=== PATIENT | female | born 2000 | race Caucasian/White ===

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

== ENCOUNTER 2018-01-26 13:12 | Outpatient (CLI) | payer MEDICAID ==
[2018-01-26 14:03] LABS: APPEARANCE,URINE CLOUDY; BILIRUBIN,URINE NEGATIVE (NEGATIVE); COLOR,URINE YELLOW; GLUCOSE, URINE NEGATIVE (NEGATIVE); KETONES,URINE NEGATIVE (NEGATIVE); LEUKOCYTE ESTERASE,URINE MODERATE (NEGATIVE); NITRITE,URINE NEGATIVE (NEGATIVE); PROTEIN,URINE NEGATIVE (NEGATIVE); URINE SPECIFIC GRAVITY 1.017
[2018-01-26 14:38] LABS: URINE AMPHETAMINES SCREEN NEGATIVE; URINE BARBITURATES SCREEN NEGATIVE; URINE BENZODIAZEPINES SCREEN NEGATIVE; URINE COCAINE SCREEN NEGATIVE; URINE MARIJUANA (THC) SCREEN NEGATIVE; URINE METHADONE SCREEN NEGATIVE; URINE PHENCYCLIDINE SCREEN NEGATIVE
--- NOTE | 2018-01-26 16:09 | Non Stress Test Report ---
Non Stress Test Datetime Report Generated by CPN: 01/26/2018 16:08 DEMOGRAPHIC EGA NST: 33.5 INDICATION Indication for Study: Ordered by Provider VITAL SIGNS NBPSYS NST: 128 NBPDIA NST: 64 MONITORING Monitor Explained: Monitor Explained; Test Explained; Patient Verbalized Understanding Time on Monitor: 01/26/2018 13:34 Time off Monitor: 01/26/2018 14:37 NST Duration: 63 NST INTERVENTIONS NST Interventions: PO Hydration; Reposition Patient Physician Notified NST: K. Fleming, CNM BABY A: [id number] BABY A Movement : Present Contraction Frequency : 0 FHR Baseline : 155 Accelerations : 15X15 Decelerations : None Variability : Moderate 6-25bpm NST Review: Meets Criteria for Reactive NST NST Review and Verified By : Diego Saldaña RN NST Results: Reactive NST REPORT Report Trigger: Send Report
== END 2018-01-26 14:40 | disposition home or self-care (01) ==
LOC: LC 13:12
PROVIDERS: ATTEND Obstetrics & Gynecology
PROC: 4A1HXCZ Monitoring of Products of Conception, Cardiac Rate, External Approach (ICD-10-PCS; principal; 2018-01-26)
DX: Z34.93 Encounter for supervision of normal pregnancy, unspecified, third trimester (principal)
CPT/HCPCS: 80307; 81001

== ENCOUNTER 2018-02-25 20:56 | Outpatient (CLI) | payer MEDICAID ==
[2018-02-25 21:30] LABS: APPEARANCE,URINE CLOUDY; BILIRUBIN,URINE NEGATIVE (NEGATIVE); COLOR,URINE YELLOW; GLUCOSE, URINE NEGATIVE (NEGATIVE); KETONES,URINE NEGATIVE (NEGATIVE); LEUKOCYTE ESTERASE,URINE LARGE (NEGATIVE); NITRITE,URINE NEGATIVE (NEGATIVE); PROTEIN,URINE NEGATIVE (NEGATIVE); URINE SPECIFIC GRAVITY 1.019
[2018-02-25 21:49] LABS: URINE AMPHETAMINES SCREEN NEGATIVE; URINE BARBITURATES SCREEN NEGATIVE; URINE BENZODIAZEPINES SCREEN NEGATIVE; URINE COCAINE SCREEN NEGATIVE; URINE MARIJUANA (THC) SCREEN NEGATIVE; URINE METHADONE SCREEN NEGATIVE; URINE PHENCYCLIDINE SCREEN NEGATIVE
--- NOTE | 2018-02-25 22:02 | Non Stress Test Report ---
Non Stress Test Datetime Report Generated by CPN: 02/25/2018 22:02 DEMOGRAPHIC EGA NST: 37.5 INDICATION Indication for Study: Ordered by Provider MONITORING Monitor Explained: Monitor Explained; Test Explained; Patient Verbalized Understanding Time on Monitor: 02/25/2018 21:20 Time off Monitor: 02/25/2018 22:00 NST Duration: 40 NST INTERVENTIONS NST Interventions: PO Hydration BABY A: [id number] BABY A Movement : Present Contraction Frequency : Occasional FHR Baseline : 140 Accelerations : 15X15 Decelerations : None Variability : Moderate 6-25bpm NST Review: Meets Criteria for Reactive NST NST Review and Verified By : Lauren Angeles RN NST Results: Reactive NST REPORT Report Trigger: Send Report
== END 2018-02-25 22:14 | disposition home or self-care (01) ==
LOC: LC 20:56
PROVIDERS: ATTEND Obstetrics & Gynecology
PROC: 4A1HXCZ Monitoring of Products of Conception, Cardiac Rate, External Approach (ICD-10-PCS; principal; 2018-02-25)
DX: O47.1 False labor at or after 37 completed weeks of gestation (principal); Z3A.37 37 weeks gestation of pregnancy
CPT/HCPCS: 59025; 80307; 81005; 84112

== ENCOUNTER 2018-03-03 15:36 | Outpatient (CLI) | payer MEDICAID ==
--- NOTE | 2018-03-03 16:35 | Non Stress Test Report ---
Non Stress Test Datetime Report Generated by CPN: 03/03/2018 16:34 DEMOGRAPHIC EGA NST: 38.4 INDICATION Indication for Study: Ordered by Provider Indication for Study (NST) Other: repeat from the office VITAL SIGNS Temperature - NST: 98.5 Pulse - NST: 77 RESP - NST: 16 NBPSYS NST: 122 NBPDIA NST: 62 MONITORING Monitor Explained: Monitor Explained; Test Explained; Patient Verbalized Understanding Time on Monitor: 03/03/2018 15:50 Time off Monitor: 03/03/2018 16:20 NST Duration: 30 NST INTERVENTIONS NST Interventions: Reposition Patient Physician Notified NST: J MADRID CNN BABY A: [id number] BABY A Movement : Present Contraction Frequency : rare FHR Baseline : 130 Accelerations : 15X15 Decelerations : None Variability : Moderate 6-25bpm NST Review: Meets Criteria for Reactive NST NST Review and Verified By : JOSE MANUEL PRADO Results: Reactive NST REPORT Report Trigger: Send Report
== END 2018-03-03 16:20 | disposition home or self-care (01) ==
LOC: LC 15:36
PROVIDERS: ATTEND Obstetrics & Gynecology Gynecology
PROC: 4A1HXCZ Monitoring of Products of Conception, Cardiac Rate, External Approach (ICD-10-PCS; principal; 2018-03-03)
DX: Z34.83 Encounter for supervision of other normal pregnancy, third trimester (principal)
CPT/HCPCS: 59025

== ENCOUNTER 2018-03-06 05:03 | Outpatient (CLI) | payer MEDICAID ==
[2018-03-06 05:51] LABS: APPEARANCE,URINE CLOUDY; BILIRUBIN,URINE NEGATIVE (NEGATIVE); COLOR,URINE YELLOW; GLUCOSE, URINE NEGATIVE (NEGATIVE); KETONES,URINE NEGATIVE (NEGATIVE); LEUKOCYTE ESTERASE,URINE LARGE (NEGATIVE); NITRITE,URINE NEGATIVE (NEGATIVE); PROTEIN,URINE NEGATIVE (NEGATIVE); URINE SPECIFIC GRAVITY 1.014; UROBILINOGEN,URINE NEGATIVE mg/dL (<2.0)
[2018-03-06 06:05] LABS: URINE AMPHETAMINES SCREEN NEGATIVE; URINE BARBITURATES SCREEN NEGATIVE; URINE BENZODIAZEPINES SCREEN NEGATIVE; URINE COCAINE SCREEN NEGATIVE; URINE MARIJUANA (THC) SCREEN NEGATIVE; URINE METHADONE SCREEN NEGATIVE; URINE PHENCYCLIDINE SCREEN NEGATIVE
[2018-03-06] MEDS ORDERED: HYDROXYZINE PAMOATE 50 MG CAPSULE PO ONE (06:39)
[2018-03-06] MEDS ORDERED: ONDANSETRON 4 MG TAB.RAPDIS PO ONE (06:40)
[2018-03-06] MEDS ORDERED: HYDROXYZINE PAMOATE 50 MG CAPSULE ONE (06:44)
[2018-03-06] MEDS ORDERED: ONDANSETRON 4 MG TAB.RAPDIS ONE (06:45)
--- NOTE | 2018-03-06 07:04 | Non Stress Test Report ---
Non Stress Test Datetime Report Generated by CPN: 03/06/2018 07:04 DEMOGRAPHIC Test Number: 5 EGA NST: 39.0 INDICATION Indication for Study: Ordered by Provider URINE RESULTS Urine Protein, NST: Negative Urine Ketones - NST: Negative Urine Glucose - NST: Negative Urine Blood - NST: Negative MONITORING Monitor Explained: Monitor Explained; Test Explained; Patient Verbalized Understanding Time on Monitor: 03/06/2018 05:22 Time off Monitor: 03/06/2018 06:49 NST Duration: 87 NST INTERVENTIONS NST Interventions: PO Hydration; Reposition Patient; Vibroacoustic Stim Physician Notified NST: Dr. Lazaro BABY A: [id number] BABY A Movement : Present Contraction Frequency : 2-6 FHR Baseline : 135 Accelerations : 15X15 Decelerations : None Variability : Moderate 6-25bpm NST Review: Meets Criteria for Reactive NST NST Review and Verified By : Charo Treviño RN NST REPORT Report Trigger: Send Report
[2018-03-06] MEDS ORDERED: MORPHINE SULFATE 10 MG/ML INJ IM ONE (10:17)
== END 2018-03-06 07:04 | disposition home or self-care (01) ==
LOC: LC 05:03
PROVIDERS: ATTEND Obstetrics & Gynecology Gynecology
PROC: 4A1HXCZ Monitoring of Products of Conception, Cardiac Rate, External Approach (ICD-10-PCS; principal; 2018-03-06)
DX: O47.1 False labor at or after 37 completed weeks of gestation (principal); Z3A.39 39 weeks gestation of pregnancy
CPT/HCPCS: 59025; 81005; 80307; S0119; J3490

== ENCOUNTER 2018-03-06 09:57 | Inpatient (IN) | payer MEDICAID ==
[2018-03-06] MEDS ORDERED: PENICILLIN G POTASSIUM 5,000,000 UNIT in DEXTROSE 5%-WATER 100 ML IV ONE (10:02)
[2018-03-06] MEDS ORDERED: RINGERS SOLUTION,LACTATED 1,000 ML IV ONE (10:02)
[2018-03-06] MEDS ORDERED: MORPHINE SULFATE 10 MG/ML INJ ONE (10:17)
[2018-03-06] MEDS ORDERED: PENICILLIN G-K 5 MILLION UNIT VIAL ONE ×2 (10:17→14:22)
--- NOTE | 2018-03-06 10:26 | Admission Physical ---
Datetime Report Generated by CPN: 03/06/2018 10:26 CURRENT ADMISSION Chief Complaint: Uterine Contractions Indication for Induction: Not Applicable Admit Impression : Term, Intrauterine Admit Plan: Admit to Unit; Initiate Labor Protocol ALLERGIES Medication Allergies: Yes Medication Allergies: Sulfa (Sulfonamide Antibiotics) (03/06/2018) Latex: No Latex Allergies Food Allergies: NONE Environmental Allergies: NONE OBSTETRICAL HISTORY EDC: 03/13/2018 00:00 : 1 Para: 0 Term: 0 : 0 SAB: 0 IAB: 0 Ectopic: 0 Livin Cesareans: 0 VBACs: 0 Multiple Births: 0 Gestational Diabetes: Yes Rh Sensitization: No Incompetent Cervix: No IMELDA: No Infertility: No ART Treatment: No Uterine Anomaly: No IUGR: No Hx Previous C/S: No Macrosomia: No Hx Loss/Stillborn: No PIH: No Hx : No Placenta Previa/Abruption: No Depression/PP Depression: Yes PTL/PROM: No Post Hemorrhage: No Current Procedures: Ultrasound; NST Obstetrical History Comments: G1 - current, GDM SEE RECORDS Alcohol: No Marijuana : No Cocaine: No Other Illicit Drugs: No Cigarettes: Never Smoker. 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 Heart Disease: No Hosp/Surgery: No Autoimmune Disorder: No Anesthetic Complications: No Kidney Disease: No Abnormal Pap Smear: No Neuro/Epilepsy: No Psychiatric Disorders: No Other Medical Diseases: No Hepatitis/Liver Disease: No Significant Family History: No Varicosities/Phlebitis: No Trauma/Violence : No Thyroid Dysfunction: No Medical History Comments: Depression INFECTIOUS HISTORY Gonorrhea: No Genital Herpes: No Chlamydia: No Tuberculosis: No Syphilis: No Hepatitis: No HIV/AIDS Exposure: No Rash or Viral Illness: No HPV: No PHYSICAL EXAM General: Normal HEENT: Normal Neurologic: Normal Thyroid: Deferred Heart: Normal Lungs: Normal Breast: Deferred Back: Normal Abdomen: Normal Genitourinary Exam: Deferred Extremities: Normal DTRs: Deferred Pelvic Type: Not Done Vital Signs: Reviewed; Within Normal Limits VAGINAL EXAM Dilatation: 5 Effacement: 90 Station: 0 FETUS A EGA: 39.0 Monitoring: External US FHR- Baseline: 135 Variability: Moderate 6-25bpm Accelerations: 15X15 Decelerations: None FHR Category: Category I Estimated Weight (gm): 3700 Presentation: Vertex Admit Comment: at 39w by LMP c/w 10w sono. GHTN, GDM. direct admit from office for labor. GBS pos. P:penicillin for GBS prophylaxis, anticipate PLANS FOR LABOR AND DELIVERY Labor and Delivery: None Pain Management: Natural; Epidural Feeding Preference: Breast Benefit of Breast Feed Discussed: Yes Circumcision: Yes INFORMED CONSENT Assignment: Shira Valentin MD Signature: with User ID: [email or web address] : with User ID: [email or web address]
[2018-03-06 11:01] LABS: ABSOLUTE LYMPHOCYTES (AUTO) 1.5 10^3/uL (0.5-4.7); ABSOLUTE MONOCYTES (AUTO) 0.4 10^3/uL (0.1-1.4); ABSOLUTE NEUT (AUTO) 10.5 10^3/uL (1.7-8.2); BASOPHILS % (AUTO) 0.2 % (0-2); HEMATOCRIT 30.3 % (36.0-47.0); HEMOGLOBIN 9.8 g/dL (12.0-15.5); LYMPHOCYTES % (AUTO) 12.1 % (13-45); MEAN CORPUSCULAR HGB CONC 32.5 g/dL (32.0-36.0); MEAN CORPUSCULAR VOLUME 74 fl (80-97); MONOCYTES % (AUTO) 3.1 % (3-13); PLATELET COUNT 338 10^3/uL (150-450); RED CELL DISTRIBUTION WIDTH 16.9 % (11.5-14.0); SEGMENTED NEUTROPHILS % (AUTO) 84.6 % (42-78); TOTAL CELLS COUNTED % (AUTO) 100 %; WHITE BLOOD COUNT 12.4 10^3/uL (4.0-10.5)
[2018-03-06] MEDS ORDERED: OXYTOCIN/NORMAL SALINE 20 UNIT/1,000 ML RTUINJ ONE (12:04)
[2018-03-06] MEDS ORDERED: LIDOCAINE 1% INJ-PF (10 MG/ML) 30 ML SDV ONE (12:04)
[2018-03-06] MEDS ORDERED: MISOPROSTOL 0.2 MG TABLET ONE (12:04)
[2018-03-06] MEDS ORDERED: ONDANSETRON HCL INJ/PF 4 MG/2 ML SDV ONE (12:04)
[2018-03-06] MEDS: PENICILLIN G POTASSIUM 2,500,000 UNIT in DEXTROSE 5%-WATER 50 ML IV SCH ×2 (14:29→20:13)
[2018-03-06] MEDS ORDERED: FENTANYL CITRATE INJ/PF 100 MCG/2 ML AMPUL ONE (15:40)
[2018-03-06] MEDS ORDERED: ACETAMINOPHEN 650 MG SUPP.RECT PR PRN (15:58)
[2018-03-06] MEDS ORDERED: PROMETHAZINE HCL INJ 25 MG/1 ML VIAL IV PRN (15:58)
[2018-03-06] MEDS ORDERED: OXYTOCIN/NORMAL SALINE 20 UNIT/1,000 ML RTUINJ IV PRN (15:58)
[2018-03-06] MEDS ORDERED: GLYCERIN/WITCH HAZEL LEAF 1 EACH MED..PAD TP PRN (15:58)
[2018-03-06] MEDS ORDERED: ACETAMINOPHEN WITH CODEINE #3 TABLET PO PRN ×2 (15:58)
[2018-03-06] MEDS ORDERED: MAGNESIUM HYDROXIDE SUSP 30 ML UDCUP PO PRN (15:58)
[2018-03-06] MEDS ORDERED: BENZOCAINE/MENTHOL AEROSOL SPRAY 56 ML TOP PRN (15:58)
[2018-03-06] MEDS ORDERED: PSEUDOEPHEDRINE HCL 30 MG TABLET PO PRN (15:58)
[2018-03-06] MEDS ORDERED: MEASLES,MUMPS&RUBELLA VACC/PF 0.5 ML VIAL SUBCUT PRN (15:58)
[2018-03-06] MEDS ORDERED: DIBUCAINE 1% OINTMENT 28 GM TP PRN (15:58)
[2018-03-06] MEDS ORDERED: DIPH/PERTUSS(ACELL)/TETANUS VAC/PF 0.5 ML SYR (>=10YO) IM PRN (15:58)
[2018-03-06] MEDS ORDERED: DIPHENHYDRAMINE HCL 25 MG CAPSULE PO PRN (15:58)
[2018-03-06] MEDS ORDERED: ZOLPIDEM TARTRATE 5 MG TABLET PO PRN (15:58)
[2018-03-06] MEDS ORDERED: PROMETHAZINE HCL 25 MG TABLET PO PRN (15:58)
[2018-03-06] MEDS ORDERED: PROMETHAZINE HCL 25 MG SUPP.RECT PR PRN (15:58)
[2018-03-06] MEDS ORDERED: NA PHOS,M-B/NA PHOS,DI-BA (ADULT) 133 ML ENEMA PR PRN (15:58)
[2018-03-06] MEDS ORDERED: IBUPROFEN 800 MG TABLET ONE (17:17)
[2018-03-06] MEDS: FERROUS SULFATE 325 MG TABLET PO SCH (19:16)
[2018-03-06] MEDS: DOCUSATE SODIUM 100 MG CAPSULE PO SCH (19:16)
[2018-03-06] MEDS: FAMOTIDINE 20 MG TABLET PO SCH (21:20)
[2018-03-06] MEDS: IBUPROFEN 800 MG TABLET PO SCH (21:21)
[2018-03-07] MEDS: IBUPROFEN 800 MG TABLET PO SCH ×3 (06:00→22:20)
[2018-03-07 08:18] LABS: MEAN CORPUSCULAR HEMOGLOBIN 24.3 pg (27.0-33.4); MEAN CORPUSCULAR VOLUME 76 fl (80-97); PLATELET COUNT 304 10^3/uL (150-450); RED CELL DISTRIBUTION WIDTH 17.1 % (11.5-14.0); WHITE BLOOD COUNT 14.8 10^3/uL (4.0-10.5)
[2018-03-07] MEDS: FERROUS SULFATE 325 MG TABLET PO SCH ×2 (10:20→17:44)
[2018-03-07] MEDS: PRENATAL VITAMIN W DHA CAPSULE PO SCH (10:20)
[2018-03-07] MEDS: SENNOSIDES/DOCUSATE 8.6-50 MG 1 EACH TABLET PO SCH (10:20)
[2018-03-07] MEDS: FAMOTIDINE 20 MG TABLET PO SCH ×2 (10:20→22:21)
[2018-03-07] MEDS: DOCUSATE SODIUM 100 MG CAPSULE PO SCH ×2 (10:20→17:49)
--- NOTE | 2018-03-07 10:26 | PDOC PROGRESS REPORT ---
Subjective-OB Progress Note for:: 03/07/18 Subjective: PP Day #1, . c/o vaginal itching, diagnosed with yeast infection but did not finish her 7 day Monistat course prior to delivering. A+ Rubella Immune Physical Exam (OB) Vital Signs: Temp Pulse Resp BP Pulse Ox 97.7 F 55 L 16 116/66 98 03/07/18 07:58 03/07/18 07:58 03/07/18 07:58 03/07/18 07:58 03/07/18 07:58 Intake & Output 03/06/18 03/07/18 03/08/18 06:59 06:59 06:59 Intake Total 1150 Balance 1150 Weight 103 kg - General General Appearance: Appears well, Alert In distress: None - Lochia Lochia Amount: Small 10-25 ml Lochia Color: Rubra/Red - Abdomen Description: Tender, Soft Hernia Present: No Fundal Description: Firm, Midline Fundal Height: u/u - u/2 - Respiratory Respiratory Status: No respiratory distress - Abdominal Inspection: Normal Distension: No distension - Genitourinary Genitourinary Note: voiding - Extremities Upper extremity: Normal inspection Lower extremities: Normal inspection - Neurological Cognition: Normal Orientation: AAOx4 - Psychological Associated symptoms: Normal affect, Normal mood Objective-Diagnostic Laboratory: 03/07/18 07:26 03/06/18 03/06/18 03/07/18 10:30 10:30 07:26 WBC 12.4 H 14.8 H RBC 4.10 3.70 L Hgb 9.8 L 9.0 L Hct 30.3 L 28.0 L MCV 74 L 76 L MCH 24.0 L 24.3 L MCHC 32.5 32.0 RDW 16.9 H 17.1 H Plt Count 338 304 Seg Neutrophils % 84.6 H Lymphocytes % 12.1 L Monocytes % 3.1 Eosinophils % 0.0 Basophils % 0.2 Absolute Neutrophils 10.5 H Absolute Lymphocytes 1.5 Absolute Monocytes 0.4 Absolute Eosinophils 0.0 Absolute Basophils 0.0 Blood Type A POSITIVE Antibody Screen NEGATIVE Assessment and Plan(PN) - Assessment and Plan (1) (normal spontaneous vaginal delivery) Is this a current diagnosis for this admission?: Yes (2) Anemia, Is this a current diagnosis for this admission?: Yes - Time Spent with Patient Time with patient: Less than 15 minutes Medications reviewed and adjusted accordingly: Yes - Disposition Anticipated Discharge: Home Within: within 24 hours
[2018-03-08] MEDS: IBUPROFEN 800 MG TABLET PO SCH ×2 (05:54→13:20)
[2018-03-08] MEDS ORDERED: (PENDING PHARMACY ID) (Pnv119/Iron Fum/Folic/Docusate [Prenatal 19 Tablet] 1 EACH) PO SCH (10:00)
[2018-03-08] MEDS: DOCUSATE SODIUM 100 MG CAPSULE PO SCH (10:05)
[2018-03-08] MEDS: PRENATAL VITAMIN W DHA CAPSULE PO SCH (10:05)
[2018-03-08] MEDS: SENNOSIDES/DOCUSATE 8.6-50 MG 1 EACH TABLET PO SCH (10:05)
[2018-03-08] MEDS: FAMOTIDINE 20 MG TABLET PO SCH (10:05)
[2018-03-08] MEDS: FERROUS SULFATE 325 MG TABLET PO SCH (10:08)
--- NOTE | 2018-03-08 14:24 | PDOC DISCHARGE SUMMARY ---
Final Diagnosis Discharge Date: 03/08/18 - Final Diagnosis (1) Anemia affecting in third trimester Is this a current diagnosis for this admission?: Yes (2) Gestational diabetes mellitus (GDM) affecting Is this a current diagnosis for this admission?: Yes (3) (normal spontaneous vaginal delivery) Is this a current diagnosis for this admission?: Yes (4) Anemia, Is this a current diagnosis for this admission?: Yes (5) Perineal laceration complicating delivery Is this a current diagnosis for this admission?: Yes Discharge Data - Discharge Medication Prescriptions: Fluconazole [Diflucan] 200 mg PO Q3DAYS #2 tablet Docusate Sodium [Colace 100 mg Capsule] 100 mg PO BID #60 capsule Ferrous Sulfate [Feosol 325 mg Tablet] 325 mg PO BID #30 tablet Ibuprofen [Motrin 800 mg Tablet] 800 mg PO Q8 PRN #60 tablet PRN Reason: Home Medications: Rev311/Iron Fum/Folic/Docusate [ 19 Tablet] 1 each PO DAILY 03/03/18 Ferrous Sulfate [Feosol 325 mg Tablet] 325 mg PO BID #30 tablet 03/07/18 Fluconazole [Diflucan] 200 mg PO Q3DAYS #2 tablet 03/07/18 Ibuprofen [Motrin 800 mg Tablet] 800 mg PO Q8 PRN #60 tablet 03/07/18 Docusate Sodium [Colace 100 mg Capsule] 100 mg PO BID #60 capsule 03/08/18 Reason(s) for Admission: Onset of Labor Procedures: Ultrasound Intrapartum Procedure(s): Spontaneous Vaginal Delivery Complication(s): Laceration-Perineal Laceration-Degree: 2nd - Diagnosis Test Laboratory: Temp Pulse Resp BP Pulse Ox 98.7 F 82 18 135/81 H 99 03/08/18 08:14 03/08/18 08:14 03/08/18 08:14 03/08/18 08:14 03/08/18 08:14 03/06/18 03/07/18 10:30 07:26 RBC 4.10 3.70 L Hgb 9.8 L 9.0 L Hct 30.3 L 28.0 L - Discharge information/Instructions Discharge Activity: Activity As Tolerated, Balance Activity w/Rest, No Lifting Over 10 Pounds, Pelvic Rest, Walk Frequently Discharge Diet: As Tolerated, Regular Disposition: HOME, SELF-CARE Follow up with: [facility] in: 1, Weeks - bp check
[2018-03-08 15:02] VITALS: BP 135/81
--- NOTE | 2018-03-14 08:12 | Delivery Summary ---
Del Sum A-C Datetime Report Generated by CPN: 03/14/2018 08:11 DELIVERY PERSONNEL DELIVERY PERSONNEL: [id number] Delivery Doctor:: Lisbeth Khan CNM Labor and Delivery Nurse:: Margie Sullivan RNstudio model Nurse:: JAMAL Bernal/POLYMERIZATION KETTLE OPERATOR: Oumou Zee, SONG AND DANCE PERFORMER MATERNAL INFORMATION Delivery Anesthesia: None Medications After Delivery: Pitocin Drip 20 Units/1000ml NSS Maternal Complications: None Provider Comments: MEGAN VIABLE MALE INFANT WITH SPONTANEOUS CRY. SPONTANEOUS PLACENTA INTACT WITH 3VC. 2NG DEGREE PERINEAL LACERATION REPAIRED UNDER LOCAL ANESTHESIA. MOTHER AND INFANT STABLE IN L_D #6 LABOR SUMMARY EDC: 03/13/2018 00:00 No. Babies in Womb: 1 Attempted: No Labor Anesthesia: None LABOR INFORMATION Reason for Induction: Not Applicable Onset of Labor: 03/06/2018 09:30 Complete Dilatation: 03/06/2018 15:24 Other Ripening Agents: n/a Oxytocin: N/A Group B Beta Strep: positive Antibiotics # of Doses: 2 Antibiotics Time of Last Dose: 1429 Name of Antibiotic Given: PCN Steroids Given: None Reason Steroids Not Administered: Not Applicable Other Reason Not Administered: n/a MEMBRANES Membranes Rupture Method: Spontaneous Rupture of Membranes: 03/06/2018 15:23 Length of Rupture (hr): 0.12 Amniotic Fluid Color: Clear Amniotic Fluid Amount: Small Amniotic Fluid Odor: Normal STAGES OF LABOR Stage 1 hr: 5 Stage 1 min: 54 Stage 2 hr: 0 Stage 2 min: 6 Stage 3 hr: 0 Stage 3 min: 6 Total Time in Labor hr: 6 Total Time in Labor min: 6 VAGINAL DELIVERY Episiotomy: None Laceration #1: Perineal Laceration Extension #1: Second Degree Laceration Repair: Yes Sponge Count Correct: Yes Sharps Count Correct: Yes CSECTION DELIVERY Primary Indication: N/A Secondary Indication: N/A CSection Incidence: N/A Labor: N/A Elective: N/A CSection Incision: N/A BABY A INFORMATION Delivery Date/Time: 03/06/2018 15:30 Method of Delivery: Vaginal Born in Route : No : N/A Forceps: N/A Vacuum Extraction: N/A Shoulder Dystocia : No PRESENTATION/POSITION BABY A Presentation: Cephalic Cephalic Presentation: Vertex Vertex Position: Right Occipital Anterior Breech Presentation: N/A PLACENTA INFORMATION BABY A Placenta Delivery Time : 03/06/2018 15:36 Placenta Method of Delivery: Spontaneous Placenta Status: Delivered SCORES BABY A Heart Rate 1 min: >100 bpm Resp Effort 1 min: Good Cry Reflex Irritability 1 min: Cough or Sneeze or Pulls Away Muscle Tone 1 min: Active Motion Color 1 min: Blue/Pale SCORE 1 MIN: 8 Heart Rate 5 min: >100 bpm Resp Effort 5 min: Good Cry Reflex Irritability 5 min: Cough or Sneeze or Pulls Away Muscle Tone 5 min: Active Motion Color 5 min: Body [employer], Extremities Blue Resuscitation Effort 5 min: N/A SCORE 5 MIN: 9 INFORMATION BABY A Gestational Age at Delivery: 39.0 Gestational Status: Full Term- 39- 40.6 Weeks Outcome : Liveborn Condition : Stable Infant Sex: Male IDENTIFICATION BABY A Verification Date/Time: 03/06/2018 15:46 ID Band Number: [id number] Mother's Name Verified: Yes Infant RN Verifying Infant: Diego Saldaña, RN and Hannah Field, RN WEIGHT/LENGTH BABY A Birthweight (gm): 3520 Infant Weight (lb): 7 Infant Weight (oz): 12 Length (in): 20.00 Length (cm): 50.80 CORD INFORMATION BABY A No. Cord Vessels: 3 Nuchal Cord : N/A Cord Blood Taken: Yes-For Storage (Mom's Blood type +) Infant Suction: Mouth ASSESSMENT BABY A Complications: None Physical Findings at Delivery: Within Normal Limits Respirations: Appears Normal Skin to Skin: Yes Skin to Skin Time (min): 90 Riveter/ALS Called : No Infant Care By: B Meng RN Transferred To: Remains with Mother BABY B INFORMATION : N/A SIGNATURES Assignment: Shria Valentin MD Signature: with User ID: [email or web address] : with User ID: [email or web address] : I was personally available for consultation and serving as supervising physician for the MLP. : I was personally available for consultation and serving as supervising physician for the MLP.
== END 2018-03-08 15:23 | disposition home or self-care (01) | DRG 806 ==
LOC: LC 09:57 → LR 10:21 → EEVIPCON 10:21 → 2S 18:31
PROVIDERS: ADMIT Obstetrics & Gynecology; ATTEND Obstetrics & Gynecology
PROC: 10E0XZZ Delivery of Products of Conception, External Approach (ICD-10-PCS; principal; 2018-03-06)
PROC: 0KQM0ZZ Repair Perineum Muscle, Open Approach (ICD-10-PCS; 2018-03-06)
PROC: 4A1HXCZ Monitoring of Products of Conception, Cardiac Rate, External Approach (ICD-10-PCS; 2018-03-06)
DX: O99.824 Streptococcus B carrier state complicating childbirth (principal); D62 Acute posthemorrhagic anemia; O98.82 Other maternal infectious and parasitic diseases complicating childbirth; B37.49 Other urogenital candidiasis; O24.429 Gestational diabetes mellitus in childbirth, unspecified control; O99.02 Anemia complicating childbirth; O70.1 Second degree perineal laceration during delivery; Z88.2 Allergy status to sulfonamides; Z3A.39 39 weeks gestation of pregnancy; Z37.0 Single live birth
CPT/HCPCS: 36415; 85025; 85027; 86592; 86850; 86900; 86901; 90471; 90686; 90715; G0008; J2270; J2405; J2540; J2590; J3010; J3490

== ENCOUNTER 2019-05-31 22:38 | Outpatient (CLI) | payer MEDICAID ==
[2019-05-31 23:18] LABS: APPEARANCE,URINE CLOUDY; BILIRUBIN,URINE NEGATIVE (NEGATIVE); COLOR,URINE YELLOW; GLUCOSE, URINE NEGATIVE (NEGATIVE); KETONES,URINE NEGATIVE (NEGATIVE); LEUKOCYTE ESTERASE,URINE SMALL (NEGATIVE); NITRITE,URINE NEGATIVE (NEGATIVE); PROTEIN,URINE NEGATIVE (NEGATIVE); URINE SPECIFIC GRAVITY 1.023
[2019-05-31] MEDS ORDERED: ACETAMINOPHEN 325 MG TABLET ONE (23:33)
[2019-05-31 23:35] LABS: URINE AMPHETAMINES SCREEN NEGATIVE; URINE BARBITURATES SCREEN NEGATIVE; URINE BENZODIAZEPINES SCREEN NEGATIVE; URINE COCAINE SCREEN NEGATIVE; URINE MARIJUANA (THC) SCREEN NEGATIVE; URINE METHADONE SCREEN NEGATIVE; URINE PHENCYCLIDINE SCREEN NEGATIVE
[2019-05-31] MEDS ORDERED: ACETAMINOPHEN 325 MG TABLET PO ONE (23:59)
--- NOTE | 2019-06-01 00:34 | RADIOLOGY REPORT (SQ) ---
CLINICAL HISTORY: Cervical Length COMPARISON: None. TECHNIQUE: US LIMITED on 05/31/2019 11:16 PM STUDIO MANAGER FINDINGS: Intrauterine gestation is present. Placenta is anterior and unremarkable. Cervix is closed measuring 3.1 cm. VIVIAN is normal at 19.4 cm. Fetus is in breech presentation. heart rate is 139 bpm. Biparietal diameter measures 7 cm corresponding to 20 weeks zero days. Head circumference measures 25.7 cm corresponding to 28 weeks zero days. Abdominal circumference measures 23.6 cm corresponding to 27 weeks six days. Femur length measures 5.2 cm corresponding to 27 weeks five days. Estimated weight is 1137 g +/- 1 168 g, 89th percentile. IMPRESSION: Closed, 3.1 cm cervix.
== END 2019-06-01 01:02 | disposition home or self-care (01) ==
LOC: LC 22:38
PROVIDERS: ATTEND Obstetrics & Gynecology
PROC: 4A1HXCZ Monitoring of Products of Conception, Cardiac Rate, External Approach (ICD-10-PCS; principal; 2019-05-31)
DX: O26.892 Other specified pregnancy related conditions, second trimester (principal); Z3A.25 25 weeks gestation of pregnancy
CPT/HCPCS: 81001; 80307; 76815; 59899; J3490

== ENCOUNTER 2019-06-05 13:07 | Emergency (ER) | payer MEDICAID ==
--- NOTE | 2019-06-05 13:45 | ER Document Report ---
ED Medical Screen (RME) - General Chief Complaint: Dizziness Stated Complaint: DIFFICULTY BREATHING/DIZZINESS Time Seen by Provider: 06/05/19 13:38 TRAVEL OUTSIDE OF THE [place] IN LAST 30 DAYS: No - HPI Notes: 06/05/19 13:43 Patient is a 18-year-old female approximately 25 weeks who presents complaining of feeling short of breath for the last several weeks, but slowly worsening since that time. Patient states that she was seen this past weekend for having low back pain and was told that the baby's head was pushing in her right upper side. Patient states that she has had a slight cough and congestion throughout her . No fever or chest pain. No other lower pelvic pain that is new or vaginal bleeding/odor/discharge. No new back pain. L&D wanted her to come here for eval. I have treated and performed a rapid initial assessment of this patient. A comprehensive ED assessment and evaluation of the patient, analysis of test results and completion of medical decision making process will be conducted by additional ED providers. PHYSICAL EXAMINATION: GENERAL: Well-appearing, well-nourished and in no acute distress. A&Ox4. Answers questions appropriately. Lungs: CTAB Heart: RRR - Related Data Allergies/Adverse Reactions: Sulfa (Sulfonamide Antibiotics) Allergy (Verified 06/05/19 13:39) Past Medical History Psychiatric Medical History: Reports: Hx Attention Deficit Hyperactivity Disorder, Hx Depression - Immunizations Immunizations up to date: Yes Hx Diphtheria, Pertussis, Tetanus Vaccination: Yes Physical Exam - Vital signs Vitals: Temp Pulse Resp BP Pulse Ox 98.3 F 101 H 28 H 137/71 H 100 06/05/19 13:21 06/05/19 13:21 06/05/19 13:21 06/05/19 13:21 06/05/19 13:21 Course - Vital Signs Vital signs: Temp Pulse Resp BP Pulse Ox 98.3 F 101 H 28 H 137/71 H 100 06/05/19 13:21 06/05/19 13:21 06/05/19 13:21 06/05/19 13:21 06/05/19 13:21
--- NOTE | 2019-06-05 14:40 | RADIOLOGY REPORT (SQ) ---
EXAM DESCRIPTION: CHEST 2 VIEWS COMPLETED DATE/TIME: 06/05/2019 2:04 pm REASON FOR STUDY: SOB, COMPARISON: None. EXAM PARAMETERS: NUMBER OF VIEWS: two views TECHNIQUE: Digital Frontal and Lateral radiographic views of the chest acquired. RADIATION DOSE: NA LIMITATIONS: none FINDINGS: LUNGS AND PLEURA: No opacities, masses or pneumothorax. No pleural effusion. MEDIASTINUM AND HILAR STRUCTURES: No masses or contour abnormalities. HEART AND VASCULAR STRUCTURES: Heart normal size. No evidence for failure. BONES: No acute findings. HARDWARE: None in the chest. OTHER: No other significant finding. IMPRESSION: NO ACUTE RADIOGRAPHIC FINDING IN THE CHEST. TECHNICAL DOCUMENTATION: JOB ID: [id number] [employer]- All Rights Reserved Reading location - IP/workstation name: [email or web address]
[2019-06-05 14:57] LABS: ABSOLUTE LYMPHOCYTES (AUTO) 1.7 10^3/uL (0.5-4.7); ABSOLUTE MONOCYTES (AUTO) 0.7 10^3/uL (0.1-1.4); ABSOLUTE NEUT (AUTO) 6.4 10^3/uL (1.7-8.2); BASOPHILS % (AUTO) 0.2 % (0-2); EOSINOPHILS % (AUTO) 0.1 % (0-6); HEMATOCRIT 26.4 % (36.0-47.0); HEMOGLOBIN 8.6 g/dL (12.0-15.5); LYMPHOCYTES % (AUTO) 19.2 % (13-45); MEAN CORPUSCULAR HEMOGLOBIN 26.3 pg (27.0-33.4); MEAN CORPUSCULAR HGB CONC 32.7 g/dL (32.0-36.0); MEAN CORPUSCULAR VOLUME 81 fl (80-97); PLATELET COUNT 284 10^3/uL (150-450); RED BLOOD COUNT 3.28 10^6/uL (3.72-5.28); RED CELL DISTRIBUTION WIDTH 14.2 % (11.5-14.0); SEGMENTED NEUTROPHILS % (AUTO) 72.5 % (42-78); TOTAL CELLS COUNTED % (AUTO) 100 %; WHITE BLOOD COUNT 8.8 10^3/uL (4.0-10.5)
[2019-06-05 15:02] LABS: AMORPHOUS SEDIMENT,URINE TRACE /HPF; APPEARANCE,URINE CLOUDY; BILIRUBIN,URINE NEGATIVE (NEGATIVE); COLOR,URINE YELLOW; GLUCOSE, URINE NEGATIVE (NEGATIVE); KETONES,URINE NEGATIVE (NEGATIVE); PROTEIN,URINE NEGATIVE (NEGATIVE); URINE SPECIFIC GRAVITY 1.017
[2019-06-05 15:24] LABS: ALBUMIN 3.4 g/dL (3.5-5.0); ALKALINE PHOSPHATASE 77 U/L (38-126); ANION GAP 9 (5-19); ASPARTATE AMINO TRANSFERASE 17 U/L (14-36); BILIRUBIN,DIRECT 0.2 mg/dL (0.0-0.4); BILIRUBIN,TOTAL 0.5 mg/dL (0.2-1.3); BLOOD UREA NITROGEN 5 mg/dL (7-20); CALCIUM 8.8 mg/dL (8.4-10.2); CARBON DIOXIDE 21 mmol/L (22-30); CHLORIDE 106 mmol/L (98-107); GLUCOSE 81 mg/dL (75-110); POTASSIUM 4.1 mmol/L (3.6-5.0); TOTAL PROTEIN 6.7 g/dL (6.3-8.2)
--- NOTE | 2019-06-05 19:10 | EKG REPORT ---
SEVERITY:- BORDERLINE ECG - SINUS RHYTHM BORDERLINE T ABNORMALITIES, DIFFUSE LEADS : Confirmed by: Deshawn Harvey MD 05-Jun-2019 19:10:20
--- NOTE | 2019-06-05 19:14 | ER Document Report ---
ED General - General Chief Complaint: Breathing Difficulty Stated Complaint: DIFFICULTY BREATHING/DIZZINESS Time Seen by Provider: 06/05/19 13:38 Notes: 18-year-old female 2 para 1, presents to the emergency department with a complaint of feeling like her baby is pressing into her lungs and causing her to feel short of breath. States that she sits all day at work and has been getting dizzy and feeling short of breath due to the baby's positioning. She denies chest pain, nausea vomiting, or fever and chills. She also denies cough or sustained shortness of breath. Patient states that now that she is lying down she feels much better. Bedside ultrasound performed in the emergency department reveals a good heartbeat and good movement noted the head is noted to be in the pelvis. OB ultrasound performed 05/31/2019 revealed a 27-week intrauterine . TRAVEL OUTSIDE OF THE [place] IN LAST 30 DAYS: No - Related Data Allergies/Adverse Reactions: Sulfa (Sulfonamide Antibiotics) Allergy (Verified 06/05/19 13:39) Past Medical History - Social History Smoking Status: Never Smoker Chew tobacco use (# tins/day): No Frequency of alcohol use: None Drug Abuse: None Family History: Reviewed & Not Pertinent Patient has suicidal ideation: No Patient has homicidal ideation: No Psychiatric Medical History: Reports: Hx Attention Deficit Hyperactivity Disorder, Hx Depression - Immunizations Immunizations up to date: Yes Hx Diphtheria, Pertussis, Tetanus Vaccination: Yes Review of Systems - Review of Systems Notes: Constitutional: Negative for fever. HENT: Negative for sore throat. Eyes: Negative for visual changes. Cardiovascular: Negative for chest pain. Respiratory: + Shortness of breath. Gastrointestinal: Negative for abdominal pain, vomiting or diarrhea. Genitourinary: Negative for dysuria. Musculoskeletal: + Back pain, pelvic pain. Skin: Negative for rash. Neurological: Negative for headaches, weakness or numbness. 10 point ROS negative except as marked above and in HPI. Physical Exam - Vital signs Vitals: Temp Pulse Resp BP Pulse Ox 98.3 F 101 H 28 H 137/71 H 100 06/05/19 13:21 06/05/19 13:21 06/05/19 13:21 06/05/19 13:21 06/05/19 13:21 - Notes Notes: PHYSICAL EXAMINATION: Physical Exam: General: Well-nourished well-developed female in no acute distress HEENT: NC/AT, pupils equal round and reactive to light, MM moist,nares clear, Neck: supple, no adenopathy, no masses. Lungs: clear, no wheezing, no rales no rhonchi CVS: Regular rate and rhythm no murmur gallop or rub Abdomen: Gravid, good heartbeat, soft active nontender, no masses, no hepatosplenomegaly Ext: No edema clubbing or cyanosis. Neuro: Alert and responsive, moving all 4 extremities on command, cranial nerves intact. Skin: Intact no open lesions, no rash PSYCH: Normal mood, normal affect. Course - Vital Signs Vital signs: Temp Pulse Resp BP Pulse Ox 98.3 F 101 H 28 H 137/71 H 100 06/05/19 13:21 06/05/19 13:21 06/05/19 13:21 06/05/19 13:21 06/05/19 13:21 - Laboratory Result Diagrams: 06/05/19 13:58 06/05/19 13:58 Laboratory results interpreted by me: 06/05/19 06/05/19 06/05/19 13:58 13:58 13:58 RBC 3.28 L Hgb 8.6 L Hct 26.4 L MCH 26.3 L RDW 14.2 H Sodium 135.8 L Carbon Dioxide 21 L BUN 5 L Creatinine 0.51 L Albumin 3.4 L Urine Urobilinogen 2.0 H Leukocyte Esterase Rfl TRACE H 06/05/19 19:12 I have reviewed laboratory data and used this information for the treatment decisions regarding the patient. Discharge - Discharge Clinical Impression: Second trimester Condition: Good Disposition: HOME, SELF-CARE Unit Admitted: Labor Check Additional Instructions: Please go to the OB floor for further evaluation of your status.
[2019-06-05 21:02] VITALS: BP 115/65
== END 2019-06-05 21:01 | disposition home or self-care (01) ==
LOC: ER 13:07
DX: O26.892 Other specified pregnancy related conditions, second trimester (principal); R06.02 Shortness of breath; R42 Dizziness and giddiness; M54.9 Dorsalgia, unspecified; R10.2 Pelvic and perineal pain; Z3A.27 27 weeks gestation of pregnancy
CPT/HCPCS: 93005; 99285; 36415; 87086; 85025; 80053; 81001; 71046; 93010; C1769

== ENCOUNTER 2019-06-05 21:24 | Outpatient (CLI) | payer MEDICAID ==
[2019-06-05 22:18] LABS: URINE AMPHETAMINES SCREEN NEGATIVE; URINE BARBITURATES SCREEN NEGATIVE; URINE BENZODIAZEPINES SCREEN NEGATIVE; URINE COCAINE SCREEN NEGATIVE; URINE MARIJUANA (THC) SCREEN NEGATIVE; URINE METHADONE SCREEN NEGATIVE; URINE PHENCYCLIDINE SCREEN NEGATIVE
== END 2019-06-05 21:40 | disposition home or self-care (01) ==
LOC: LC 21:24
PROVIDERS: ATTEND Student in an Organized Health Care Education/Training Program
PROC: 4A1HXCZ Monitoring of Products of Conception, Cardiac Rate, External Approach (ICD-10-PCS; principal; 2019-06-05)
DX: O47.02 False labor before 37 completed weeks of gestation, second trimester (principal); Z3A.25 25 weeks gestation of pregnancy
CPT/HCPCS: 80307

== ENCOUNTER 2019-07-13 12:01 | Outpatient (CLI) | payer MEDICAID ==
[2019-07-13] MEDS ORDERED: DEXTROSE 5%-LACTATED RINGERS 1,000 ML IV PRN (12:49)
[2019-07-13 12:57] LABS: APPEARANCE,URINE SLIGHTLY-CLOUDY; BILIRUBIN,URINE NEGATIVE (NEGATIVE); COLOR,URINE YELLOW; GLUCOSE, URINE NEGATIVE (NEGATIVE); KETONES,URINE NEGATIVE (NEGATIVE); LEUKOCYTE ESTERASE,URINE MODERATE (NEGATIVE); NITRITE,URINE NEGATIVE (NEGATIVE); PROTEIN,URINE 30 mg/dL (NEGATIVE); URINE SPECIFIC GRAVITY 1.024
[2019-07-13 13:21] LABS: URINE AMPHETAMINES SCREEN NEGATIVE; URINE BARBITURATES SCREEN NEGATIVE; URINE BENZODIAZEPINES SCREEN NEGATIVE; URINE COCAINE SCREEN NEGATIVE; URINE MARIJUANA (THC) SCREEN NEGATIVE; URINE METHADONE SCREEN NEGATIVE; URINE PHENCYCLIDINE SCREEN NEGATIVE
--- NOTE | 2019-07-13 13:49 | Non Stress Test Report ---
Non Stress Test Datetime Report Generated by CPN: 07/13/2019 13:49 DEMOGRAPHIC EGA NST: 34.0 URINE RESULTS Urine Glucose - NST: Positive MONITORING Monitor Explained: Monitor Explained; Test Explained; Patient Verbalized Understanding Time on Monitor: 07/13/2019 12:21 Time off Monitor: 07/13/2019 13:04 NST Duration: 43 NST INTERVENTIONS NST Interventions: None Physician Notified NST: A. Khan, CNM BABY A: [id number] BABY A Movement : Decreased Contraction Frequency : 0 FHR Baseline : 110 Decelerations : None Variability : Minimal - Undetectable to <=5bpm NST Review: Does Not Meet Criteria for Reactive NST NST Review and Verified By : B Baidy RN NST Results: Non-Reactive NST REPORT Report Trigger: Send Report
--- NOTE | 2019-07-13 13:54 | RADIOLOGY REPORT (SQ) ---
EXAM DESCRIPTION: U/S PROFILE W/O STRESS COMPLETED DATE/TIME: 07/13/2019 1:28 pm REASON FOR STUDY: BPP for anomaly and nonreactive NST COMPARISON: Limited OB ultrasound dated 06/01/2019 TECHNIQUE: Limited green-scale realtime and static images of the fetus to measure specified parameter s. LIMITATIONS: None. FINDINGS: HEART RATE: 116 beats per minute. VIVIAN: 22.3 cm. LVP: 8.0 cm BREATHING MOVEMENT: 2 points. MOVEMENT: 2 points. POSTURE AND TONE: 2 points. QUALITATIVE VIVIAN: 2 points. OTHER: Cephalic presentation. IMPRESSION: BIOPHYSICAL PROFILE: 01/11. Trimester of : Third - 28 weeks to delivery COMMENT: BREATHING MOVEMENTS: 2 POINTS: PRESENT 0 POINTS: ABSENT MOTION: 2 POINTS: PRESENT 0 POINTS: ABSENT TONE: 2 POINTS: PRESENT 0 POINTS: ABSENT AMNIOTIC FLUID VOLUME: 2 POINTS: LARGEST POCKET GREATER THAN 2 CM DEPTH. 0 POINTS: NO POCKET OF 2 CM. TECHNICAL DOCUMENTATION: JOB ID: [id number] [employer]- All Rights Reserved Reading location - IP/workstation name: [email or web address]
== END 2019-07-13 13:35 | disposition home or self-care (01) ==
LOC: EEVIPCON 12:01 → LC 12:01
PROVIDERS: ATTEND Obstetrics & Gynecology
PROC: 4A1HXCZ Monitoring of Products of Conception, Cardiac Rate, External Approach (ICD-10-PCS; principal; 2019-07-13)
DX: O36.8130 Decreased fetal movements, third trimester, not applicable or unspecified (principal); Z3A.34 34 weeks gestation of pregnancy
CPT/HCPCS: 59025; 76819; 80307; 81001

== ENCOUNTER 2019-07-26 09:40 | Outpatient (CLI) | payer MEDICAID ==
[2019-07-26 10:20] LABS: APPEARANCE,URINE CLEAR; BILIRUBIN,URINE NEGATIVE (NEGATIVE); COLOR,URINE YELLOW; GLUCOSE, URINE NEGATIVE (NEGATIVE); KETONES,URINE NEGATIVE (NEGATIVE); LEUKOCYTE ESTERASE,URINE SMALL (NEGATIVE); NITRITE,URINE NEGATIVE (NEGATIVE); PROTEIN,URINE NEGATIVE (NEGATIVE); URINE SPECIFIC GRAVITY 1.009; UROBILINOGEN,URINE NEGATIVE mg/dL (<2.0)
[2019-07-26 10:37] LABS: URINE AMPHETAMINES SCREEN NEGATIVE; URINE BARBITURATES SCREEN NEGATIVE; URINE BENZODIAZEPINES SCREEN NEGATIVE; URINE COCAINE SCREEN NEGATIVE; URINE MARIJUANA (THC) SCREEN NEGATIVE; URINE METHADONE SCREEN NEGATIVE; URINE PHENCYCLIDINE SCREEN NEGATIVE
--- NOTE | 2019-07-26 12:13 | Non Stress Test Report ---
Non Stress Test Datetime Report Generated by CPN: 07/26/2019 12:12 DEMOGRAPHIC Test Number: 2 EGA NST: 35.6 INDICATION Indication for Study (NST) Other: CARDIAC ANOMALIES VITAL SIGNS Temperature - NST: 97.7 Pulse - NST: 93 RESP - NST: 18 NBPSYS NST: 111 NBPDIA NST: 59 MONITORING Monitor Explained: Monitor Explained; Test Explained; Patient Verbalized Understanding Time on Monitor: 07/26/2019 09:57 Time off Monitor: 07/26/2019 10:39 NST Duration: 42 NST INTERVENTIONS NST Interventions: PO Hydration; Reposition Patient; For Biophysical Profile Physician Notified NST: P STERLING, CNM REVIEWED STRIP BABY A: [id number] BABY A Movement : Present Contraction Frequency : NONE FHR Baseline : 120 Accelerations : 10X10 Decelerations : None Variability : Minimal - Undetectable to <=5bpm NST Review: Does Not Meet Criteria for Reactive NST NST Review and Verified By : SAutry NST Results: Non-Reactive NST COMMENTS NST Comments: BPP- 8/8 NST REPORT Report Trigger: Send Report
--- NOTE | 2019-07-26 13:16 | RADIOLOGY REPORT (SQ) ---
EXAM DESCRIPTION: U/S PROFILE W/O STRESS COMPLETED DATE/TIME: 07/26/2019 11:23 am REASON FOR STUDY: NON-REACTIVE NST @ 35+6 WEEKS COMPARISON: 07/13/2019 TECHNIQUE: Limited green-scale realtime and static images of the fetus to measure specified parameter s. LIMITATIONS: None. FINDINGS: HEART RATE: 125 beats per minute. VIVIAN: 16.1 cm. BREATHING MOVEMENT: 2 points. MOVEMENT: 2 points. POSTURE AND TONE: 2 points. QUALITATIVE VIVIAN: 2 points. OTHER: Intrauterine gestation of 35 weeks 5 days. Vertex lie. IMPRESSION: BIOPHYSICAL PROFILE: 01/11. Trimester of : Third - 28 weeks to delivery COMMENT: BREATHING MOVEMENTS: 2 POINTS: PRESENT 0 POINTS: ABSENT MOTION: 2 POINTS: PRESENT 0 POINTS: ABSENT TONE: 2 POINTS: PRESENT 0 POINTS: ABSENT AMNIOTIC FLUID VOLUME: 2 POINTS: LARGEST POCKET GREATER THAN 2 CM DEPTH. 0 POINTS: NO POCKET OF 2 CM. TECHNICAL DOCUMENTATION: JOB ID: [id number] 2010 [employer]- All Rights Reserved Reading location - IP/workstation name: [email or web address]
== END 2019-07-26 11:05 | disposition home or self-care (01) ==
LOC: LC 09:40
PROVIDERS: ATTEND Student in an Organized Health Care Education/Training Program
PROC: 4A1HXCZ Monitoring of Products of Conception, Cardiac Rate, External Approach (ICD-10-PCS; principal; 2019-07-26)
DX: O36.8330 Maternal care for abnormalities of the fetal heart rate or rhythm, third trimester, not applicable or unspecified (principal); Z3A.35 35 weeks gestation of pregnancy
CPT/HCPCS: 59025; 76819; 80307; 81001

== ENCOUNTER 2019-08-02 08:47 | Outpatient (CLI) | payer MEDICAID ==
[2019-08-02 09:42] LABS: APPEARANCE,URINE CLOUDY; BILIRUBIN,URINE NEGATIVE (NEGATIVE); COLOR,URINE YELLOW; GLUCOSE, URINE NEGATIVE (NEGATIVE); KETONES,URINE NEGATIVE (NEGATIVE); LEUKOCYTE ESTERASE,URINE MODERATE (NEGATIVE); NITRITE,URINE NEGATIVE (NEGATIVE); PROTEIN,URINE NEGATIVE (NEGATIVE); URINE SPECIFIC GRAVITY 1.016
[2019-08-02 10:05] LABS: URINE AMPHETAMINES SCREEN NEGATIVE; URINE BARBITURATES SCREEN NEGATIVE; URINE BENZODIAZEPINES SCREEN NEGATIVE; URINE COCAINE SCREEN NEGATIVE; URINE MARIJUANA (THC) SCREEN NEGATIVE; URINE METHADONE SCREEN NEGATIVE; URINE PHENCYCLIDINE SCREEN NEGATIVE
[2019-08-02] MEDS ORDERED: DEXTROSE 5%-LACTATED RINGERS 1,000 ML IV PRN (10:36)
[2019-08-02] MEDS ORDERED: ONDANSETRON HCL INJ/PF 4 MG/2 ML SDV ONE (10:40)
[2019-08-02] MEDS ORDERED: MAG HYDROX/AL HYDROX/SIMETH SUSP 30 ML UDCUP PO ONE (10:49)
[2019-08-02] MEDS ORDERED: MAG HYDROX/AL HYDROX/SIMETH SUSP 30 ML UDCUP ONE (10:58)
[2019-08-02] MEDS ORDERED: CALCIUM CARBONATE 500 MG TAB.CHEW PO ONE (11:30)
[2019-08-02] MEDS ORDERED: ONDANSETRON HCL INJ/PF 4 MG/2 ML SDV IV ONE (11:30)
--- NOTE | 2019-08-02 12:42 | RADIOLOGY REPORT (SQ) ---
EXAM DESCRIPTION: U/S PROFILE W/O STRESS COMPLETED DATE/TIME: 08/02/2019 12:01 pm REASON FOR STUDY: Nonreactive NST COMPARISON: None. TECHNIQUE: Limited green-scale realtime and static images of the fetus to measure specified parameter s. LIMITATIONS: None. FINDINGS: HEART RATE: 121 beats per minute. VIVIAN: 11.9 cm. LVP: 5 x 4.4 cm. BREATHING MOVEMENT: 2 points. MOVEMENT: 2 points. POSTURE AND TONE: 2 points. QUALITATIVE VIVIAN: 2 points. PRESENTATION: Vertex. PLACENTA: Anterior. IMPRESSION: BIOPHYSICAL PROFILE: 01/11. Trimester of : Third - 28 weeks to delivery COMMENT: BREATHING MOVEMENTS: 2 POINTS: PRESENT 0 POINTS: ABSENT MOTION: 2 POINTS: PRESENT 0 POINTS: ABSENT TONE: 2 POINTS: PRESENT 0 POINTS: ABSENT AMNIOTIC FLUID VOLUME: 2 POINTS: LARGEST POCKET GREATER THAN 2 CM DEPTH. 0 POINTS: NO POCKET OF 2 CM. TECHNICAL DOCUMENTATION: JOB ID: [id number] 2010 [employer]- All Rights Reserved Reading location - IP/workstation name: [email or web address]
--- NOTE | 2019-08-02 13:01 | PDOC TRANSFER SUMMARY ---
General Admission Date/PCP: SUSHMA OLIVAREZ MD - Transfer Diagnosis (1) IUP (intrauterine ), incidental Is this a current diagnosis for this admission?: Yes (2) cardiac anomaly complicating , antepartum, single gestation Is this a current diagnosis for this admission?: Yes (3) cardiac anomaly complicating , antepartum, single gestation Is this a current diagnosis for this admission?: Yes - Transfer Medications Home Medications: Unz133/Iron Fum/Folic/Docusate [ 19 Tablet] 1 each PO DAILY 03/03/18 Transfer Medications: Current Medications Dextrose/Lactated Ringer's (D5lr 1000 Ml Iv Soln) 1,000 mls @ 999 mls/hr IV CONTINUOUS PRN PRN Reason: THIS MED IS NOT "PRN" Stop: 09/01/19 10:35 Last Admin: 08/02/19 10:53 Dose: 999 mls/hr Documented by: - Allergies Allergies/Adverse Reactions: Sulfa (Sulfonamide Antibiotics) Allergy (Verified 07/26/19 09:51) Hospital Course Hospital Course: pt presented to L&D c/o nausea and what she statedshe was having contraction. Pt hydrated and noted to be 2 cm with no further cevical change. Discussed with at [facility] and because of her cardiac diagnosis we are sending her to [place] for teriary care Physical Exam Vital Signs: Intake & Output 08/01/19 08/02/19 08/03/19 06:59 06:59 06:59 Weight 95.617 kg General appearance: PRESENT: no acute distress Respiratory exam: PRESENT: clear to auscultation anastasia Cardiovascular exam: PRESENT: RRR GI/Abdominal exam: PRESENT: soft - 2 cm 50% -2 Results Laboratory Results: 08/02/19 09:02 Urine Color YELLOW Urine Appearance CLOUDY Urine pH 7.0 Ur Specific [place] 1.016 Urine Protein NEGATIVE Urine Glucose (UA) NEGATIVE Urine Ketones NEGATIVE Urine Blood NEGATIVE Urine Nitrite NEGATIVE Ur Leukocyte Esterase MODERATE H Urine WBC (Auto) 5 Urine RBC (Auto) 0 Impressions: Stress Test 08/02/19 11:05 IMPRESSION: BIOPHYSICAL PROFILE: 01/11. Trimester of : Third - 28 weeks to delivery
== END 2019-08-02 13:33 | disposition short-term general hospital (02) ==
LOC: LC 08:47
PROVIDERS: ATTEND Obstetrics & Gynecology Gynecology
PROC: 4A1HXCZ Monitoring of Products of Conception, Cardiac Rate, External Approach (ICD-10-PCS; principal; 2019-08-02)
DX: O35.8XX0 Maternal care for other (suspected) fetal abnormality and damage, not applicable or unspecified (principal); O09.33 Supervision of pregnancy with insufficient antenatal care, third trimester; Z3A.36 36 weeks gestation of pregnancy
CPT/HCPCS: 59025; 81001; 80307; 76819; J3490; J2405